=== PATIENT | male | born 1955 | race Caucasian/White ===

== ENCOUNTER 2016-07-18 20:53 | Emergency (ER) | payer MEDICAID ==
[2016-07-18 21:02] VITALS: TEMP 97.5
--- NOTE | 2016-07-18 23:06 | EDPHY ---
H & P Smoking Status: Heavy smoker Time Seen by Provider: 07/18/16 21:14 HPI/ROS: HPI Alcohol intoxication. 61-year-old male on [employer] hold with [employer] police. Patient was found down and from [facility] grocery store. Strong odor of alcohol on his breath. Unable to ambulate under his own power. No history of trauma. His is present with him at the bedside. She states that he drink a pt or more of vodka starting at 12 noon. It is unclear how he wound up at the [facility] grocery store. The patient reports only that he had too much to drink. He has no other complaints. ROS: Constitutional: No fever, no chills. As above. Eyes: No discharge. No changes in vision. ENT: No sore throat. No nasal congestion or rhinorrhea. Respiratory: No cough. No shortness of breath. Cardiac: No chest pain, no palpitations. Gastrointestinal: No abdominal pain, no vomiting, no diarrhea. Genitourinary: No hematuria. No dysuria or increased frequency with urination. Musculoskeletal: No back pain. No neck pain. No myalgias or arthralgias. Skin: No rashes. Neurological: No headache. No focal weakness or altered sensation. Past medical history: Hypertension, dental pain, alcohol abuse. Social history: Alcohol abuse. Here with his . Physical Exam: General Appearance: Sleeping but easily arousable. Strong odor of alcohol on his breath.. This patient is responding to questions appropriately albeit with slurred speech. This patient appears well-hydrated and well-nourished. Eyes: Pupils equal and round no pallor or injection. No lid edema, erythema or injection. Respiratory: There are no retractions, lungs are clear to auscultation with good air movement bilaterally. Cardiovascular: Regular rate and rhythm. No murmur. Gastrointestinal: Abdomen is soft and nontender, no masses, bowel sounds normal. No focal tenderness at McBurney's point. No Shelby sign. Neurological: Motor sensory function is grossly intact. Cranial nerves are normal. Skin: Warm and dry, no rashes. Musculoskeletal: Neck is supple and nontender. Extremities are symmetrical. All joints range without pain or impingement. Psychiatric: No agitation. No depression. Database: EKG: Imaging: Procedures: Emergency department course: Vital signs reviewed and are normal. Plan is to allow the patient to sober in the emergency department until discharge bowl to the [facility] with [employer] police. 10:45 p.m., patient up to the bathroom but required assistance. Unable to ambulate on his own at this time. 11:00 p.m., patient's care turned over to Dr. Mehta. Plan is as above. Differential Diagnosis: The differential diagnosis on this patient includes but is not limited to alcohol intoxication. Traumatic brain injury, seizure, other significant traumatic injury unlikely. This represents a partial list of diagnoses considered. These considerations are based on history, physical exam, past history, reassessment and diagnostic testing. (Cary Coy) Constitutional: Initial Vital Signs Temperature (C) 36.4 C 07/18/16 20:55 Heart Rate 74 07/18/16 20:55 Respiratory Rate 18 07/18/16 20:55 Blood Pressure 106/74 07/18/16 20:55 O2 Sat (%) 97 07/18/16 20:55 O2 Delivery Mode Room Air O2 (L/minute) 2 Allergies/Adverse Reactions: No Known Allergies Allergy (Unverified 07/18/16 21:06) Home Medications: Medication Instructions Recorded Lisinopril [Zestril 20 mg (*)] 20 mg PO DAILY 02/14/12 Medical Decision Making ED Course/Re-evaluation: 2300 patient signed out to me from Dr. Coy pending sobriety in transfer the [facility]. 0100 patient ambulating unassisted emergency department. Medically cleared for the [facility]. (Parth Mehta) - Data Points Medications Given: Discontinued Medications Chlordiazepoxide (Librium 25 Mg Prepack#6) 1 btl TAKEHOME EDNOW ONE Stop: 07/19/16 00:02 Last Admin: 07/19/16 00:01 Dose: 1 btl Departure - Departure Disposition: Home, Routine, Self-Care Clinical Impression: Alcohol intoxication Condition: Good Instructions: Chlordiazepoxide/Clidinium (By mouth), Abuse of Alcohol (ED) Additional Instructions: Read and follow provided instructions. Follow-up with your primary care physician in 1-2 days for re-evaluation as needed. Do not abuse alcohol. Return to the emergency department for worsening symptoms or other serious concerns. Referrals: [facility] Detox 24 Hours [Outside] - As per Instructions
[2016-07-18] MEDS ORDERED: CHLORDIAZEPOXIDE 25MG PREPK#6 BTL TAKEHOME ONE (23:58)
[2016-07-19] MEDS ORDERED: CHLORDIAZEPOXIDE 25MG PREPK#6 BTL TAKEHOME ONE (00:01)
[2016-07-19 00:18] VITALS: BP 114/68; PULSE 89; RESP 16; O2SAT 94
== END 2016-07-19 00:17 | disposition home or self-care (01) ==
LOC: EDUNIT#
DX: F10.129 Alcohol abuse with intoxication, unspecified (principal); I10 Essential (primary) hypertension; F17.200 Nicotine dependence, unspecified, uncomplicated

== ENCOUNTER 2017-04-02 12:52 | Emergency (ER) | payer MEDICAID ==
[2017-04-02 12:58] VITALS: BP 143/85; PULSE 86; RESP 16; TEMP 97.7; O2SAT 90
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
== END 2017-04-02 14:25 | disposition left against medical advice (07) ==
LOC: EDUNIT#
DX: S27.0XXA Traumatic pneumothorax, initial encounter (principal); S22.41XA Multiple fractures of ribs, right side, initial encounter for closed fracture; F10.29 Alcohol dependence with unspecified alcohol-induced disorder; F17.200 Nicotine dependence, unspecified, uncomplicated; I10 Essential (primary) hypertension; W22.8XXA Striking against or struck by other objects, initial encounter